=== PATIENT | female | born 2000 | race Caucasian/White ===

== ENCOUNTER 2021-08-15 23:30 | Emergency (ER) | payer OTHER ==
[~2021-08-15] VITALS: Ht 182.9 cm; Wt 104.3 kg
[2021-08-15 23:36] VITALS: BP 134/85
--- NOTE | 2021-08-15 23:36 | NUR ---
PT TAKEN TO BED 3
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
[2021-08-16] MEDS ORDERED: BACITRACIN OINT 500 UNITS/GM PKT TP ONE (00:15)
[2021-08-16] MEDS ORDERED: HYDROcodone/APAP 5/325 MG 1 TAB TAB PO ONE (00:15)
[2021-08-16] MEDS ORDERED: LIDOCAINE MPF 1% 10 MG/ML VIAL INJ ONE (00:15)
[2021-08-16] MEDS ORDERED: ACET-10509 PO (00:48)
[2021-08-16] MEDS ORDERED: NAPR-54 PO (00:48)
[2021-08-16] MEDS ORDERED: BACI1PAC6 TP (00:49)
[2021-08-16 00:55] VITALS: BP 134/85
--- NOTE | 2021-08-16 00:55 | NUR ---
Patient discharged with v/s stable. Written and verbal after care instructions given and explained. Patient alert, oriented and verbalized understanding of instructions. Ambulatory with steady gait. All questions addressed prior to discharge. ID band removed. Patient advised to follow up with PMD. Rx of TYLENOL, BACITRACIN, & NAPROSYN given. Patient educated on indication of medication including possible reaction and side effects. Opportunity to ask questions provided and answered. THUMB WITH DSD AND SPLINT IN PLACE
== END 2021-08-16 00:55 | disposition home or self-care (01) ==
LOC: MED 23:30
DX: S63.601A Unspecified sprain of right thumb, initial encounter (principal); S60.111A Contusion of right thumb with damage to nail, initial encounter; Z79.899 Other long term (current) drug therapy; Z98.890 Other specified postprocedural states; W23.0XXA Caught, crushed, jammed, or pinched between moving objects, initial encounter; Y93.89 Activity, other specified; Y92.89 Other specified places as the place of occurrence of the external cause; Y99.8 Other external cause status
CPT/HCPCS: 11740; 73140; 99284; J2001

== ENCOUNTER 2022-05-06 21:57 | Emergency (ER) | payer OTHER ==
[~2022-05-06] VITALS: Ht 182.9 cm; Wt 120.2 kg
[~2022-05-06 21:57] MED LIST: ACET-10509 PO; BACI1PAC6 TP; NAPR-54 PO
[2022-05-06 22:13] VITALS: BP 116/55
[2022-05-07] MEDS ORDERED: ONDANSETRON 4 MG/2 ML VIAL IVP ONE (01:10)
[2022-05-07] MEDS ORDERED: NACL 0.9% 1,000 ML IV ONE (01:10)
[2022-05-07 01:29] LABS: BASOPHILS # (AUTO) 0.1 K/uL (0.00-0.22); BASOPHILS % (AUTO) 0.8 % (0.0-2.0); EOSINOPHILS # (AUTO) 0.1 K/uL (0-0.4); EOSINOPHILS % (AUTO) 1.4 % (0.0-4.0); HEMATOCRIT 35.5 % (36-48); HEMOGLOBIN 12.2 g/dL (12.0-16.0); LYMPHOCYTES # (AUTO) 2.9 K/uL (2.5-16.5); LYMPHOCYTES % (AUTO) 40.4 % (20.5-51.1); MEAN CORPUSCULAR HEMOGLOBIN 28 pg (27-31); MEAN CORPUSCULAR HGB CONC 34 g/dL (33-37); MEAN CORPUSCULAR VOLUME 80.7 fL (80-94); MONOCYTES # (AUTO) 0.8 K/uL (0.8-1.0); MONOCYTES % (AUTO) 10.6 % (1.7-9.3); NEUTROPHILS # (AUTO) 3.4 K/uL (1.8-7.7); NEUTROPHILS % (AUTO) 46.8 % (42.2-75.2); PLATELET COUNT (AUTO) 247 K/uL (140-450); RED CELL DISTRIBUTION WIDTH 13.6 % (11.6-13.7); WHITE BLOOD COUNT (AUTO) 7.2 K/uL (4.8-10.8)
[2022-05-07 01:48] LABS: APPEARANCE,URINE SL CLOUDY (CLEAR); BILIRUBIN,URINE NEGATIVE (NEGATIVE); BLOOD, URINE 3+ (NEGATIVE); COLOR,URINE YELLOW (YELLOW); LEUKOCYTE ESTERASE ,URINE NEGATIVE (NEGATIVE); NITRITE, URINE NEGATIVE (NEGATIVE); UGLUCOSE NEGATIVE (NEGATIVE)
[2022-05-07 01:58] LABS: RBC,URINE >100 /HPF (0-5); WBC,URINE >25 (MANY) /HPF (0-5)
[2022-05-07 02:17] LABS: ALBUMIN 3.8 g/dL (3.4-5.0); CARBON DIOXIDE 27.5 mmol/L (21-32); CREATININE 0.8 mg/dL (0.6-1.3); POTASSIUM 3.5 mmol/L (3.5-5.1); TOTAL BILIRUBIN 0.2 mg/dL (0.0-1.0)
[2022-05-07] MEDS ORDERED: ONDA-188 PO (02:48)
[2022-05-07] MEDS ORDERED: NAPR-54 PO (02:48)
[2022-05-07 03:18] VITALS: BP 101/88
== END 2022-05-07 03:16 | disposition home or self-care (01) ==
LOC: MED 21:57
DX: R53.1 Weakness (principal); E86.0 Dehydration; N39.0 Urinary tract infection, site not specified; R19.7 Diarrhea, unspecified; F12.90 Cannabis use, unspecified, uncomplicated; Z98.890 Other specified postprocedural states; Z79.899 Other long term (current) drug therapy
CPT/HCPCS: 36415; 80053; 81001; 81025; 83690; 85025; 87086; 96361; 96374; 99283; J2405; J7030